=== PATIENT | male | born 1960 | race Caucasian/White ===

== ENCOUNTER 2019-10-20 16:13 | Emergency (ER) | payer OTHER ==
[~2019-10-20] VITALS: Ht 180.3 cm; Wt 72.7 kg
[~2019-10-20 16:13] MED LIST: NORepinephrine bitart. inj. IV ONE; aspirin 300mg supp.rect RC ONE; atropine 0.1 mg/ml 5ml syringe ONE; calcium chloride 100 MG/1 ML inj IV ONE; epiNEPHrine 1 mg/ml 30ml MDV ONE; heparin 10,000 units/1 ML INJ ONE; normal saline 250 ML IV soln ONE; sodium bicarbonate (8.4%) 1 mEq/ml syringe ONE
[2019-10-20] MEDS ORDERED: LIDOcaine 1% (10mg/ml)w/preservative injection 20ml MDV ONE (16:25)
[2019-10-20] MEDS ORDERED: heparin 1,000unit/ml 10ml vial 10 ML ONE (16:26)
[2019-10-20] MEDS ORDERED: iohexol 350 MG/ML 50ML vial IV ONE (16:26)
[2019-10-20] MEDS ORDERED: iohexol 350 MG/1 ML 200ml bottle ONE (16:26)
--- NOTE | 2019-10-20 16:26 | NUR ---
tube moved from 29 at the teeth to 24.
--- NOTE | 2019-10-20 16:29 | NUR ---
gamaliel notified of pt's potential anterior stemi. amio and levo drips ordered. one bolus of ns ordered.
[2019-10-20] MEDS ORDERED: amiodarone/D5 360MG/200ML BAG 200 ML IV SCH ×3 (16:30→16:59)
--- NOTE | 2019-10-20 16:30 | NUR ---
unable to scan meds due to scanner at bedside not working. pt name, birthday, and medication verified prior to admin.
[2019-10-20] MEDS ORDERED: NORepinephrine 8mg/ 250ml NS 250 ML IV SCH ×2 (16:35→16:50)
[2019-10-20] MEDS ORDERED: fentaNYL/PF 50MCG/1 ML 2ML syringe IV ONE (16:40)
--- NOTE | 2019-10-20 16:43 | NUR ---
50MCG EPI ODERD PT HR 42
--- NOTE | 2019-10-20 16:45 | NUR ---
50 MCG EPI PUSHED. HR 45.
--- NOTE | 2019-10-20 16:47 | NUR ---
50 MCG EPI PUSH
--- NOTE | 2019-10-20 16:49 | NUR ---
NOREPI AT 0.2 MCG/KG/MIN
[2019-10-20 16:52] LABS: ALANINE AMINOTRANSFERASE 148 U/L (12-78); ALBUMIN 2.8 G/DL (3.4-5.0); ALBUMIN/GLOBULIN RATIO 0.9 (1.1-1.5); ALKALINE PHOSPHATASE 80 IU/L (46-116); ANION GAP 17 (8-16); ASPARTATE AMINO TRANSFERASE 169 U/L (10-37); BILIRUBIN,TOTAL 0.3 MG/DL (0.1-1.0); BLOOD UREA NITROGEN 23 MG/DL (7-18); BUN/CREATININE RATIO 16.1 (5.4-32.0); CALCIUM 8.5 MG/DL (8.5-10.1); CHLORIDE 107 MMOL/L (99-107); CREATININE 1.43 MG/DL (0.60-1.10); GLUCOSE 215 MG/DL (70-104); SODIUM 146 MMOL/L (135-145); TOTAL CARBON DIOXIDE 21.8 MMOL/L (24-32); TOTAL PROTEIN 5.8 G/DL (6.4-8.2); eGFR 51 ML/MIN
[2019-10-20 16:53] LABS: BASOPHILS # (AUTO) 0.1 X10'3 (0-0.2); BASOPHILS % (AUTO) 0.7 % (0-1); EOSINOPHILS # (AUTO) 0.1 X10'3 (0-0.9); EOSINOPHILS % (AUTO) 1.7 % (0-6); HEMATOCRIT 46.2 % (42.0-52.0); HEMOGLOBIN 14.7 g/dl (14.0-17.9); LYMPHOCYTES # (AUTO) 4.7 X10'3 (1.1-4.8); LYMPHOCYTES % (AUTO) 54.2 % (21-51); MEAN CORPUSCULAR HEMOGLOBIN 28.4 PG (27.0-31.0); MEAN CORPUSCULAR HGB CONC 31.8 g/dL (33.0-36.5); MEAN CORPUSCULAR VOLUME 89.1 FL (78-98); MEAN PLATELET VOLUME 8.5 FL (7.4-10.4); MONOCYTES # (AUTO) 0.4 X10'3 (0-0.9); MONOCYTES % (AUTO) 4.3 % (2-12); NEUTROPHILS # (AUTO) 3.4 X10'3 (1.8-7.7); NEUTROPHILS % (AUTO) 39.1 % (42-75); PLATELET COUNT 150 X10'3 (140-440); RED BLOOD COUNT 5.19 X10'6 (4.70-6.10); RED CELL DISTRIBUTION WIDTH 14.6 % (11.5-14.5); WHITE BLOOD COUNT 8.7 X10'3 (4.5-11.0)
--- NOTE | 2019-10-20 16:54 | NUR ---
art line placed in right forearm by antonio. [employer] label internship team at bedside to take pt up.
--- NOTE | 2019-10-20 16:54 | NUR ---
DOSE MOVED TO 0.1 OF NOREPI
[2019-10-20] MEDS ORDERED: midazolam 2 mg/2 ml injection ONE (16:55)
[2019-10-20] MEDS ORDERED: MIDAZolam 5mg/ml 2ml vial IV ONE (16:55)
--- NOTE | 2019-10-20 16:56 | NUR ---
SEEN AT [facility] YESTERDAY FOR CP JINA DUDLEY.
[2019-10-20 17:06] LABS: ABG BASE EXCESS -17.3 mmol/L (-2.0-3.0); ABG HCO3 10.7 mmol/L (22.0-26.0); ABG OXYGEN SATURATION 99.4 % (95-98); ABG PCO2 (T) 32.5 mmHg (35.0-45.0); ABG PH (T) 7.135 (7.350-7.450); ABG PO2 (T) 298.7 mmHg (83-108); FCOHb 0.1 % (0.5-1.5); FMetHb 0.2 % (0.3-1.12); FO2Hb 99.1 % (94-100); RESPIRATORY RATE 12 b/min; TIDAL VOLUME 500 mL; TOTAL HEMOGLOBIN 14.3 G/dl (14.0-17.9)
[2019-10-20 17:14] VITALS: BP 114/81
[2019-10-20] MEDS ORDERED: heparin 25,000 UNIT/250ml bag 250 ML IV ONE (17:16)
[2019-10-20] MEDS ORDERED: nitroGLYCERIN-Tridil 50MG/D5W 250 ML IV ONE (17:34)
[2019-10-20] MEDS ORDERED: epiNEPHrine 0.1mg/ml 10ml syringe ONE (17:43)
[2019-10-20] MEDS ORDERED: magnesium 1 GM/2 ML inj ONE (17:54)
[2019-10-20 18:25] LABS: PLATELET ESTIMATE NORMAL; TOTAL CELLS COUNTED 100
[2019-10-20 18:26] LABS: SMUDGE CELLS 2+
== END 2019-10-21 03:23 | disposition expired ==
LOC: ER 16:14
DX: I46.9 Cardiac arrest, cause unspecified (principal); Z20.828 Contact with and (suspected) exposure to other viral communicable diseases; I21.3 ST elevation (STEMI) myocardial infarction of unspecified site
CPT/HCPCS: 36415; 36600; 71045; 80053; 82803; 84484; 85018; 85025; 87635; 92920; 92950; 93005; 93454; 96374; 96375; 99291; C1725; C1769; C1894; C9606; J0171; J0461; J1644; J2001; J2250; J3010; J3475; J7050; Q9967; 94002; 94760; A6258; C1751; J3490